=== PATIENT | female | born 1990 | race Caucasian/White ===

== ENCOUNTER 2017-03-11 04:59 | Emergency (ER) | payer MEDICAID ==
[~2017-03-11] VITALS: Ht 157.5 cm; Wt 71.5 kg
[~2017-03-11 04:59] MED LIST: FERR325T20 PO; HYDR-3240 PO; IBUP-1222 PO; NONE PER PT; [UNRECOGNIZED DRUG - CODE] PO
[2017-03-11 05:01] VITALS: BP 116/78
[2017-03-11] MEDS ORDERED: BACITRACIN ZINC OINT 500U/GM, 0.9 GM ONE (05:29)
== END 2017-03-11 05:51 | disposition home or self-care (01) ==
LOC: ED 05:23
DX: L25.9 Unspecified contact dermatitis, unspecified cause (principal)
CPT/HCPCS: 99283

== ENCOUNTER 2017-12-09 10:21 | Emergency (ER) | payer MEDICAID ==
[~2017-12-09] VITALS: Ht 157.5 cm; Wt 65.0 kg
[~2017-12-09 10:21] MED LIST changes: +ASCO500T59 PO; +FERR325T18 PO; -FERR325T20 PO; -[UNRECOGNIZED DRUG - CODE] PO
[2017-12-09] MEDS ORDERED: SODIUM CHLORIDE 0.9% 1,000 ML IV ONE (10:53)
[2017-12-09] MEDS ORDERED: SODIUM CHLORIDE 0.9% 1,000ML IVBOLUS ONE (11:00)
[2017-12-09] MEDS ORDERED: SODIUM CHLORIDE FLUSH 10ML SYR IVF ONE (11:00)
[2017-12-09] MEDS ORDERED: KETOROLAC 30 MG/1 ML IVPush ONE (11:00)
[2017-12-09] MEDS ORDERED: KETOROLAC 30 MG/1 ML ONE (11:05)
[2017-12-09 11:10] LABS: BASOPHILS # (AUTO) 0.02 x10^3/uL (0-0.1); BASOPHILS % (AUTO) 0 % (0-1); EOSINOPHILS # (AUTO) 0.07 x10^3/uL (0-0.4); EOSINOPHILS % (AUTO) 1 % (1-7); LYMPHOCYTES # (AUTO) 1.67 x10^3/uL (1-3.4); LYMPHOCYTES % (AUTO) 19 % (22-44); MD NO; MEAN CORPUSCULAR HEMOGLOBIN 26.4 pg (27.0-34.8); MEAN CORPUSCULAR HGB CONC 32.8 g/dL (32.4-35.8); MEAN CORPUSCULAR VOLUME 80.7 fL (80-100); MEAN PLATELET VOLUME 8.8 fL (7.4-10.4); MONOCYTES # (AUTO) 0.56 x10^3/uL (0.2-0.8); MONOCYTES % (AUTO) 6 % (2-9); NEUTROPHILS # (AUTO) 6.37 x10^3/uL (1.8-6.8); NEUTROPHILS % (AUTO) 73 % (42-75); PLATELET COUNT 328 x10^3/uL (130-400); RED BLOOD COUNT 4.81 x10^6/uL (3.82-5.3); RED CELL DISTRIBUTION WIDTH 14.6 % (9.6-15.2)
[2017-12-09 11:20] LABS: ALBUMIN 3.7 g/dL (3.4-5.0); ANION GAP 7 mmol/L (5-15); CALCIUM 8.8 mg/dL (8.5-10.1); CHLORIDE 111 mmol/L (98-107); CREATININE 0.74 mg/dL (0.55-1.02)
[2017-12-09] MEDS ORDERED: FLUO10TA PO (11:29)
[2017-12-09] MEDS ORDERED: DIVA500T2 PO (11:29)
[2017-12-09 11:33] LABS: CULTURE INDICATED? YES; MICROSCOPIC INDICATED
[2017-12-09] MEDS ORDERED: CEFTRIAXONE PMX 1GM/50ML 50 ML ONE (12:07)
[2017-12-09 12:17] VITALS: BP 103/63
[2017-12-09] MEDS ORDERED: CEFTRIAXONE PMX 1GM/50ML 50 ML IV ONE (12:30)
== END 2017-12-09 13:14 | disposition home or self-care (01) ==
LOC: ED 12:45
DX: N10 Acute pyelonephritis (principal); R10.12 Left upper quadrant pain; R10.32 Left lower quadrant pain
CPT/HCPCS: 36415; 80048; 81001; 82040; 84703; 85025; 87077; 87086; 87186; 96361; 96365; 96375; 99284; J0696; J1885; J7030

== ENCOUNTER 2018-10-13 00:43 | Emergency (ER) | payer MEDICAID ==
[~2018-10-13] VITALS: Ht 157.5 cm; Wt 69.0 kg
[~2018-10-13 00:43] MED LIST changes: +DIVA500T2 PO; +FLUO10TA PO
--- NOTE | 2018-10-13 00:56 | NUR ---
pt c/o sore throat x 2 days. patient was seen here 2 weeks ago for the same and was given antibiotic. pt's aox4. resps even and unlabored.
[2018-10-13] MEDS ORDERED: DEXAMETHASONE 4 MG TABLET ONE (01:14)
[2018-10-13] MEDS ORDERED: IBUPROFEN 200 MG TABLET ONE (01:14)
[2018-10-13] MEDS ORDERED: ACETAMINOPHEN 500 MG TABLET ONE (01:14)
--- NOTE | 2018-10-13 01:20 | NUR ---
PT MEDICATED PER EMAR. PT TOLERATED WELL. PT'S AOX4. RESPS EVEN AND UNLABORED.
[2018-10-13] MEDS ORDERED: IBUPROFEN 200 MG TABLET PO ONE (01:30)
[2018-10-13] MEDS ORDERED: DEXAMETHASONE 4 MG TABLET PO ONE (01:30)
[2018-10-13] MEDS ORDERED: ACETAMINOPHEN 500 MG TABLET PO ONE (01:30)
--- NOTE | 2018-10-13 01:37 | NUR ---
patient discharged with instruction. verbalized understanding.
[2018-10-13 01:38] VITALS: BP 100/65
== END 2018-10-13 01:40 | disposition home or self-care (01) ==
LOC: ED 01:13
DX: J06.9 Acute upper respiratory infection, unspecified (principal)
CPT/HCPCS: 99284

== ENCOUNTER 2019-08-16 23:31 | Emergency (ER) | payer MEDICAID ==
[~2019-08-16] VITALS: Ht 157.5 cm; Wt 75.5 kg
[2019-08-16] MEDS ORDERED: PARO30TA3 PO (23:43)
[2019-08-16] MEDS ORDERED: DIVA500T2 PO (23:43)
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
--- NOTE | 2019-08-16 23:57 | NUR ---
EDMD AT BEDSIDE TO EVALUATE AT THIS TIME.
[2019-08-17] MEDS ORDERED: HYDROcodone/APAP 5/325 TABLET PO ONE
[2019-08-17] MEDS ORDERED: IBUPROFEN 200 MG TABLET PO ONE
[2019-08-17] MEDS ORDERED: DIAZEPAM 5 MG TABLET PO ONE
[2019-08-17 00:08] LABS: BASOPHILS # (AUTO) 0.02 x10^3/uL (0-0.1); BASOPHILS % (AUTO) 0 % (0-1); EOSINOPHILS # (AUTO) 0.18 x10^3/uL (0-0.4); EOSINOPHILS % (AUTO) 3 % (1-7); LYMPHOCYTES # (AUTO) 2.74 x10^3/uL (1-3.4); LYMPHOCYTES % (AUTO) 40 % (22-44); MD NO; MEAN CORPUSCULAR HEMOGLOBIN 27.9 pg (27.0-34.8); MEAN CORPUSCULAR HGB CONC 33.3 g/dL (32.4-35.8); MEAN PLATELET VOLUME 8.2 fL (7.4-10.4); MONOCYTES # (AUTO) 0.42 x10^3/uL (0.2-0.8); MONOCYTES % (AUTO) 6 % (2-9); NEUTROPHILS # (AUTO) 3.58 x10^3/uL (1.8-6.8); NEUTROPHILS % (AUTO) 52 % (42-75); PLATELET COUNT 329 x10^3/uL (130-400); RED BLOOD COUNT 4.62 x10^6/uL (3.82-5.3)
[2019-08-17] MEDS ORDERED: DIAZEPAM 5 MG TABLET ONE (00:08)
[2019-08-17] MEDS ORDERED: IBUPROFEN 200 MG TABLET ONE (00:08)
[2019-08-17] MEDS ORDERED: HYDROcodone/APAP 5/325 TABLET ONE (00:09)
--- NOTE | 2019-08-17 00:13 | NUR ---
PT MEDICATED PER EMAR. PT TOLERATED WELL.
--- NOTE | 2019-08-17 00:16 | NUR ---
PT AMB TO BR AND BACK TO ROOM WITH STEADY GAIT. UA SENT.
[2019-08-17 00:20] LABS: ALANINE AMINOTRANSFERASE 30 U/L (12-78); ALBUMIN 3.7 g/dL (3.4-5.0); ANION GAP 6 mmol/L (5-15); CALCIUM 8.7 mg/dL (8.5-10.1); CHLORIDE 111 mmol/L (98-107); CREATININE 0.75 mg/dL (0.55-1.02)
[2019-08-17 00:24] LABS: ALKALINE PHOSPHATASE 70 U/L (45-117); BILIRUBIN,TOTAL 0.2 mg/dL (0.2-1.0); TOTAL PROTEIN 7.3 g/dL (6.4-8.2)
[2019-08-17 00:29] LABS: MICROSCOPIC AUTO
[2019-08-17 00:37] LABS: CULTURE INDICATED? YES
--- NOTE | 2019-08-17 01:09 | NUR ---
ASSUMED CARE OF PATIENT. REPORT GIVEN FROM SHALA ROCHA
[2019-08-17 01:15] VITALS: BP 151/92
--- NOTE | 2019-08-17 01:15 | NUR ---
DR JIM HAS UPDATED PATIENT.
== END 2019-08-17 01:54 | disposition home or self-care (01) ==
LOC: ED 08-17 00:34
DX: S39.012A Strain of muscle, fascia and tendon of lower back, initial encounter (principal); R10.84 Generalized abdominal pain; X58.XXXA Exposure to other specified factors, initial encounter; Y93.89 Activity, other specified; Y92.89 Other specified places as the place of occurrence of the external cause; Y99.8 Other external cause status
CPT/HCPCS: 36415; 80053; 81001; 84703; 85025; 87086; 99284

== ENCOUNTER 2020-08-10 10:52 | Emergency (ER) | payer MEDICAID ==
[~2020-08-10] VITALS: Ht 157.5 cm; Wt 77.2 kg
[~2020-08-10 10:52] MED LIST changes: +PARO30TA3 PO
[2020-08-10 10:55] VITALS: BP 123/72
== END 2020-08-10 11:26 | disposition home or self-care (01) ==
LOC: ED 11:06
DX: K02.9 Dental caries, unspecified (principal); Z79.899 Other long term (current) drug therapy
CPT/HCPCS: 99283

== ENCOUNTER 2020-10-12 09:30 | Emergency (ER) | payer MEDICAID ==
[~2020-10-12] VITALS: Ht 157.5 cm; Wt 78.6 kg
[~2020-10-12 09:30] MED LIST changes: +HYDR-1067 PO; -HYDR-3240 PO
--- NOTE | 2020-10-12 09:46 | NUR ---
foam dispenser: EKG done in triage
--- NOTE | 2020-10-12 10:06 | NUR ---
Pt states she "used to pass out all the time 5 years ago. 13 years ago when I had my son, they told me I'm anemic, I get really heavy bleeding with my periods. I eat a bunch of liver because that's supposed to help." Pt states she got cold and could tell she was going to syncope last night. Pt states she sat down on the bed. Pt also complains of n/v x 1month, "it's not because I had my tubes removed."
[2020-10-12 11:04] LABS: BASOPHILS % (AUTO) 0 % (0-1); EOSINOPHILS % (AUTO) 2 % (1-7); LYMPHOCYTES % (AUTO) 31 % (22-44); MD NO; MEAN CORPUSCULAR HEMOGLOBIN 28.3 pg (27.0-34.8); MEAN CORPUSCULAR HGB CONC 34.2 g/dL (32.4-35.8); MEAN PLATELET VOLUME 8.5 fL (7.4-10.4); MONOCYTES % (AUTO) 5 % (2-9); NEUTROPHILS % (AUTO) 62 % (42-75); PLATELET COUNT 303 x10^3/uL (130-400); RED BLOOD COUNT 4.94 x10^6/uL (3.82-5.3); RED CELL DISTRIBUTION WIDTH 13.2 % (9.6-15.2)
[2020-10-12 11:06] LABS: ALBUMIN 3.9 g/dL (3.4-5.0); ANION GAP 5 mmol/L (5-15); CALCIUM 8.7 mg/dL (8.5-10.1); CHLORIDE 112 mmol/L (98-107)
[2020-10-12 11:18] LABS: ALANINE AMINOTRANSFERASE 18 U/L (12-78); ALKALINE PHOSPHATASE 83 U/L (45-117); BILIRUBIN,TOTAL 0.3 mg/dL (0.2-1.0); CREATININE 0.65 mg/dL (0.55-1.02); TOTAL PROTEIN 7.7 g/dL (6.4-8.2)
--- NOTE | 2020-10-12 11:45 | NUR ---
"I'm just resting." Lights off to promote rest. Chart up for recheck.
[2020-10-12 12:19] VITALS: BP 107/67
--- NOTE | 2020-10-12 12:20 | NUR ---
discharge reviewed, shows understanding. left with mom driving
== END 2020-10-12 12:21 | disposition home or self-care (01) ==
LOC: ED 10:24
DX: R55 Syncope and collapse (principal); R42 Dizziness and giddiness; E66.9 Obesity, unspecified; G43.909 Migraine, unspecified, not intractable, without status migrainosus; Z68.31 Body mass index [BMI] 31.0-31.9, adult; Z98.51 Tubal ligation status; Z79.899 Other long term (current) drug therapy
CPT/HCPCS: 36415; 80053; 84443; 84703; 85025; 93005; 99284

== ENCOUNTER 2021-04-12 00:34 | Emergency (ER) | payer MEDICAID ==
[~2021-04-12] VITALS: Ht 157.5 cm; Wt 79.9 kg
[~2021-04-12 00:34] MED LIST changes: -HYDR-1067 PO; +HYDR-2214 PO
[2021-04-12 01:01] VITALS: BP 125/80
[2021-04-12 01:47] LABS: BASOPHILS % (AUTO) 0 % (0-1); EOSINOPHILS % (AUTO) 1 % (1-7); LYMPHOCYTES % (AUTO) 32 % (22-44); MEAN CORPUSCULAR HEMOGLOBIN 28.6 pg (27.0-34.8); MEAN CORPUSCULAR HGB CONC 34.5 g/dL (32.4-35.8); MEAN PLATELET VOLUME 8.4 fL (7.4-10.4); MONOCYTES % (AUTO) 7 % (2-9); NEUTROPHILS % (AUTO) 60 % (42-75); PLATELET COUNT 320 x10^3/uL (130-400); RED BLOOD COUNT 4.68 x10^6/uL (3.82-5.3); RED CELL DISTRIBUTION WIDTH 13.3 % (9.6-15.2)
[2021-04-12 01:59] LABS: ALBUMIN 3.5 g/dL (3.4-5.0); ANION GAP 3 mmol/L (5-15); CHLORIDE 111 mmol/L (98-107)
[2021-04-12 02:06] LABS: ALANINE AMINOTRANSFERASE 17 U/L (12-78); ALKALINE PHOSPHATASE 74 U/L (45-117); BILIRUBIN,TOTAL 0.3 mg/dL (0.2-1.0); CREATININE 0.81 mg/dL (0.55-1.02); TOTAL PROTEIN 7.5 g/dL (6.4-8.2)
--- NOTE | 2021-04-12 04:52 | NUR ---
Patient given discharge instructions and they have confirmed that they understand the instructions. Patient ambulatory with steady gait. NAD, all questions answered appropriately, denies additional needs at this time. No personal belongings left in room after discharge.
== END 2021-04-12 04:59 | disposition home or self-care (01) ==
LOC: ED 04:30
DX: R55 Syncope and collapse (principal)
CPT/HCPCS: 36415; 71045; 80053; 84443; 84703; 85025; 93005; 99285